=== PATIENT | female | born 1965 | race American Indian/Alaskan Native ===

== ENCOUNTER 2016-10-06 10:45 | Emergency (ER) | payer BC, OTHER ==
[2016-10-06 11:02] VITALS: BP 158/97
[2016-10-06] MEDS ORDERED: VISTARIL PO ONE (11:40)
[2016-10-06] MEDS ORDERED: PEPCID PO ONE (11:40)
--- NOTE | 2016-10-06 11:44 | Emergency Department Report ---
Chief Complaint: Allergic Reaction Stated Complaint: ALLERGIC REACTION Time Seen by Provider: 10/06/16 11:39 - HPI History of Present Illness: 51-year-old -[place] female comes to the emergency room for complaint of lip swelling since 2:30 AM this morning. Patient reports the top of her lip swelling worse she took Benadryl prior to arrival. She denies any shortness of breath no wheezes does report a time for the little thicker. She denies being on any blood pressure medicine any new foods or new perfumes or soaps. - Exam Vital Signs: Vital Signs 10/06/16 10:57 Temperature 98.2 F Pulse Rate 81 Respiratory 20 Rate Blood Pressure 158/97 O2 Sat by Pulse 100 Oximetry Physical Exam: Patient's alert and oriented 3 she does have quite a bit of swelling in her upper lip. She is moving air fine. No uvula edema. Cardiovascular S1-S2 regular rate and rhythm MSE screening note: Focused history and physical exam performed. Due to findings the following was ordered: Patient's been evaluated by this provider MSE triage. We will order Pepcid 40 mg by mouth starter Medrol 40 mg IM and Vistaril 50 mg by mouth. Patient be evaluated in fast track. ED Disposition for MSE Condition: Stable Referrals: VIVIANA SHARMA MD [Primary Care Provider] - 3-5 Days
--- NOTE | 2016-10-06 14:50 | Emergency Department Report ---
Entered by ARIANNA TALLEY, acting as scribe for BALTAZAR WANG PA. ED Allergic Reaction HPI - General Chief complaint: Allergic Reaction Stated complaint: ALLERGIC REACTION Time Seen by Provider: 10/06/16 11:39 Source: patient Mode of arrival: Ambulatory Limitations: No Limitations - History of Present Illness Initial Comments: 51 year old female presents to the ED for evaluation of upper lip swelling that began this morning at 02:30. She reports mild improvement after Benadryl at home and Benadryl, Pepcid, and Steroids after triage in the ED. She reports no known allergies but states she ate seafood yesterday. Denies difficulty swallowing, shortness of breath, chest pain, fever, chills, abdominal pain, nausea, and vomiting. MD Complaint: facial swelling (upper lip) -: This morning Time: 02:30 Exposure: unknown (reports eating seafood yesterday) Symptoms: lip swelling. denies: rash, itching, facial swelling, difficulty swallowing, difficulty breathing, nausea, vomiting, abdominal pain Treatment Prior to Arrival: benadryl Previous Allergy History: none - Related Data Previous Rx's Medication Instructions Recorded Last Taken Type Diphenhydramine HCl [Benadryl 25 mg PO Q6H #30 tablet 10/06/16 Unknown Rx Allergy TAB] EPINEPHrine (NF) [Epipen (Nf)] 0.3 mg IM ONCE PRN #1 syringekit 10/06/16 Unknown Rx predniSONE [Deltasone] 20 mg PO QDAY #6 tab 10/06/16 Unknown Rx Allergies Allergy/AdvReac Type Severity Reaction Status Date / Time No Known Allergies Allergy Unverified 11/30/14 10:45 ED Review of Systems Comment: All other systems reviewed and negative Constitutional: denies: chills ENT: other (swelling to upper lip). denies: throat pain (difficulty swallowing) Respiratory: denies: shortness of breath, wheezing Cardiovascular: denies: chest pain Gastrointestinal: denies: abdominal pain, nausea, vomiting Skin: denies: rash ED Past Medical Hx - Past Medical History Previous Medical History?: Yes Additional medical history: allergic reaction, Heart murmur - Surgical History Past Surgical History?: Yes Hx Breast Surgery: Yes (Reduction) Additional Surgical History: Gastric sleeve 5-2015, Hysterectomy - Social History Smoking Status: Never Smoker Substance Use Type: Other - Medications Home Medications: Home Medications Medication Instructions Recorded Confirmed Last Taken Type Diphenhydramine HCl [Benadryl 25 mg PO Q6H #30 tablet 10/06/16 Unknown Rx Allergy TAB] EPINEPHrine (NF) [Epipen (Nf)] 0.3 mg IM ONCE PRN #1 syringekit 10/06/16 Unknown Rx predniSONE [Deltasone] 20 mg PO QDAY #6 tab 10/06/16 Unknown Rx ED Physical Exam - General Limitations: No Limitations General appearance: alert, in no apparent distress, other (The patient is well- developed and well-nourished) - Head Head exam: Present: atraumatic, normocephalic - Eye Eye exam: Present: PERRL, EOMI - ENT ENT exam: Present: normal external ear exam (External auditory canals and tympanic membranes clear; hearing grossly intact.), other (Swelling to upper lip. No erythema, swelling or exudates to posterior phayrnx. Airway patent. Normal nasal mucosa with no nasal discharge.) - Neck Neck exam: Present: normal inspection, full ROM (supple). Absent: meningismus, lymphadenopathy, thyromegaly - Respiratory Respiratory exam: Present: normal lung sounds bilaterally. Absent: respiratory distress, wheezes, rales, rhonchi, chest wall tenderness - Cardiovascular Cardiovascular Exam: Present: regular rate, normal rhythm, normal heart sounds. Absent: rubs, gallop - GI/Abdominal GI/Abdominal exam: Present: soft. Absent: distended, tenderness, guarding, rebound - Neurological Exam Neurological exam: Present: alert, oriented X3 - Psychiatric Psychiatric exam: Present: normal affect, normal mood ED Course Vital Signs 10/06/16 10:57 Temperature 98.2 F Pulse Rate 81 Respiratory 20 Rate Blood Pressure 158/97 O2 Sat by Pulse 100 Oximetry ED Medical Decision Making - Lab Data Vital Signs 10/06/16 10:57 Temperature 98.2 F Pulse Rate 81 Respiratory 20 Rate Blood Pressure 158/97 O2 Sat by Pulse 100 Oximetry - Medical Decision Making 51-year-old female presents today with a swollen upper lip since 0230 this morning post eating seafood last night. Patient reports reduction in symptoms post Pepcid, Benadryl, steroids. Patient is in no acute distress at this time. She will be discharged home and is encouraged to follow up with a primary care provider. She will be sent home on Benadryl, prednisone and EpiPen and is encouraged to return to the emergency room for any worsening symptoms. 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 Return to the emergency department if symptoms worsen. Prescriptions: Diphenhydramine HCl [Benadryl Allergy TAB] 25 mg PO Q6H #30 tablet EPINEPHrine (NF) [Epipen (Nf)] 0.3 mg IM ONCE PRN #1 syringekit PRN Reason: Anaphylaxis predniSONE [Deltasone] 20 mg PO QDAY #6 tab Referrals: VIVIANA SHARMA MD [Primary Care Provider] - 3-5 Days Forms: Work/School Release Form(ED) Time of Disposition: 14:49 This documentation as recorded by the GERRI barone REBEKAH,accurately reflects the service I personally performed and the decisions made by ,BALTAZAR WANG PA.
== END 2016-10-06 15:00 | disposition home or self-care (01) ==
LOC: ED 10:45
DX: T78.1XXA Other adverse food reactions, not elsewhere classified, initial encounter (principal); X58.XXXA Exposure to other specified factors, initial encounter
CPT/HCPCS: 96372; 99282; J2920; Q0177

== ENCOUNTER 2020-11-03 12:21 | Emergency (ER) | payer OTHER ==
[2020-11-03 13:31] VITALS: BP 186/87
--- NOTE | 2020-11-03 14:39 | Emergency Department Report ---
ED Back Pain/Injury HPI - General Chief Complaint: Extremity Problem,Nontraumatic Stated Complaint: RT LEG PAIN Time Seen by Provider: 11/03/20 14:26 Source: patient Limitations: No Limitations - History of Present Illness Initial Comments: Patient is a 55-year-old female presents emergency room with complaints of right lower back pain that radiates down the right leg that began yesterday. She states that she could not get comfortable in the bed. She states that the pain is worse when she sits down or when she first starts to stand up. She states that she does have pain in her back upon lifting her leg. She denies any fall or injury. She denies any leg swelling, calf pain, fever, chest pain, shortness of breath, nausea, vomiting, diarrhea, complete numbness, weakness, bowel or bladder incontinence. She is ambulatory. Patient states that she had a Covid vaccine 3 weeks ago and due to reports in the news she was concerned that she may have a blood clot due to googling online but she reports that she believes she was wrong. She states that the pain is in the back and radiates down the leg. She states that the pain does not start in the leg. She states there is no leg swelling, no increased warmth, no erythema, and no calf pain. - Related Data Previous Rx's Medication Instructions Recorded Last Taken Type Diphenhydramine HCl [Benadryl 25 mg PO Q6H #30 tablet 10/06/16 Unknown Rx Allergy TAB] EPINEPHrine (NF) [Epipen (Nf)] 0.3 mg IM ONCE PRN #1 syringekit 10/06/16 Unknown Rx predniSONE [Deltasone] 20 mg PO QDAY #6 tab 10/06/16 Unknown Rx Cyclobenzaprine [Flexeril] 10 mg PO BID PRN #14 tablet 11/03/20 Unknown Rx Menthol/Camphor [Phoenix Gage 1 applic TP BID #18 oint...g. 11/03/20 Unknown Rx Ointment] Naproxen [EC-Naprosyn] 500 mg PO BID PRN #14 tablet. 11/03/20 Unknown Rx Prednisone [predniSONE 10 mg 10 mg PO .TAPER #1 tab.ds.pk 11/03/20 Unknown Rx (6-Day Pack, 21 Tabs)] Allergies Allergy/AdvReac Type Severity Reaction Status Date / Time No Known Allergies Allergy Unverified 11/30/14 10:45 ED Review of Systems ROS: Stated complaint: RT LEG PAIN Other details as noted in HPI Comment: All other systems reviewed and negative ED Past Medical Hx - Past Medical History Previous Medical History?: No Additional medical history: allergic reaction, Heart murmur - Surgical History Past Surgical History?: Yes Hx Breast Surgery: Yes (Reduction) Additional Surgical History: Gastric sleeve -2015, Hysterectomy - Social History Smoking Status: Never Smoker Substance Use Type: Other - Medications Home Medications: Home Medications Medication Instructions Recorded Confirmed Last Taken Type Diphenhydramine HCl [Benadryl 25 mg PO Q6H #30 tablet 10/06/16 Unknown Rx Allergy TAB] EPINEPHrine (NF) [Epipen (Nf)] 0.3 mg IM ONCE PRN #1 syringekit 10/06/16 Unknown Rx predniSONE [Deltasone] 20 mg PO QDAY #6 tab 10/06/16 Unknown Rx Cyclobenzaprine [Flexeril] 10 mg PO BID PRN #14 tablet 11/03/20 Unknown Rx Menthol/Camphor [Phoenix Gage 1 applic TP BID #18 oint...g. 11/03/20 Unknown Rx Ointment] Naproxen [EC-Naprosyn] 500 mg PO BID PRN #14 tablet.dr 11/03/20 Unknown Rx Prednisone [predniSONE 10 mg 10 mg PO .TAPER #1 tab.ds.pk 11/03/20 Unknown Rx (6-Day Pack, 21 Tabs)] ED Physical Exam - General Limitations: No Limitations General appearance: alert, in no apparent distress - Head Head exam: Present: atraumatic, normocephalic - Eye Eye exam: Present: normal appearance - ENT ENT exam: Present: mucous membranes moist - Neck Neck exam: Present: normal inspection, full ROM. Absent: tenderness - Respiratory Respiratory exam: Present: normal lung sounds bilaterally. Absent: respiratory distress, wheezes, rales, rhonchi, stridor, chest wall tenderness, accessory muscle use, decreased breath sounds, prolonged expiratory - Cardiovascular Cardiovascular Exam: Present: regular rate, normal rhythm, normal heart sounds. Absent: systolic murmur, diastolic murmur, rubs, gallop - Extremities Exam Extremities exam: Present: normal inspection, full ROM, normal capillary refill, other (negative homans sign, no calf ttp, no edema of the BLE, no erythema, no increased warmth, neurovascularly intact). Absent: tenderness, pedal edema, joint swelling, calf tenderness - Back Exam Back exam: Present: normal inspection, full ROM, paraspinal tenderness (right lumbar paraspinal muscular ttp, no midline C-spine, T-spine or L-spine ttp, no step offs, no deformities, pain with SLR of the right leg). Absent: vertebral tenderness - Neurological Exam Neurological exam: Present: alert, oriented X3, CN II-XII intact, normal gait. Absent: motor sensory deficit - Psychiatric Psychiatric exam: Present: normal affect, normal mood - Skin Skin exam: Present: warm, dry, intact ED Course Vital Signs 11/03/20 13:30 Temperature 98.2 F Pulse Rate 65 Respiratory 22 Rate Blood Pressure 186/87 O2 Sat by Pulse 100 Oximetry ED Medical Decision Making - Medical Decision Making Patient is a 55-year-old female presents emergency room with complaints of right lower back pain that radiates down the right leg that began yesterday. She states that she could not get comfortable in the bed. She states that the pain is worse when she sits down or when she first starts to stand up. She states that she does have pain in her back upon lifting her leg. She denies any fall or injury. She denies any leg swelling, calf pain, fever, chest pain, shortness of breath, nausea, vomiting, diarrhea, complete numbness, weakness, bowel or bladder incontinence. She is ambulatory. Patient states that she had a Covid vaccine 3 weeks ago and due to reports in the news she was concerned that she may have a blood clot due to googling online but she reports that she believes she was wrong. She states that the pain is in the back and radiates down the leg. She states that the pain does not start in the leg. She states there is no leg swelling, no increased warmth, no erythema, and no calf pain. Vitals with mildly elevated blood pressure, otherwise stable, patient states that she believes it is elevated secondary to her being nervous and having discomfort, advised patient to please keep a blood pressure log, follow-up with your primary care doctor eat a low-sodium diet. On exam:negative homans sign, no calf ttp, no edema of the BLE, no erythema, no increased warmth, neurovascularly intact, right lumbar paraspinal muscular ttp, no midline C-spine, T-spine or L-spine ttp, no step offs, no deformities, pain with SLR of the right leg, she has no clinical signs of DVT. Symptoms appear most consistent with sciatica versus lumbar radiculopathy. Patient has no red flag warning signs of back pain, no trauma, no unexplained weight loss, no neuro deficits, no fever, no IV drug use, no steroid use, no history of cancer. Patient given prescriptions. Advised patient Please take medication as prescribed. Do not drive or operate machinery when taking muscle relaxer Flexeril. May use ice pack, heating pad, rest, and epsom salt bath. Please do the stretches for sciatica. Follow-up with your primary care doctor for reexamination. Return to emergency room immediately for any new or worsening symptoms including but not limited to leg swelling, calf pain, difficulty breathing, chest pain, complete numbness, weakness, unable to control bowel or bladder function. Critical care attestation.: If time is entered above; I have spent that time in minutes in the direct care of this critically ill patient, excluding procedure time. ED Disposition Clinical Impression: Low back pain Qualifiers: Chronicity: acute Back pain laterality: right Sciatica presence: with sciatica Sciatica laterality: sciatica of right side Qualified Code(s): M54.41 - Lumbago with sciatica, right side Disposition: DC-01 TO HOME OR SELFCARE Is pt being admited?: No Does the pt Need Aspirin: No Condition: Stable Instructions: Sciatica Additional Instructions: Please take medication as prescribed. Do not drive or operate machinery when taking muscle relaxer Flexeril. May use ice pack, heating pad, rest, and epsom salt bath. Please do the stretches for sciatica. Follow-up with your primary care doctor for reexamination. Return to emergency room immediately for any new or worsening symptoms including but not limited to leg swelling, calf pain, difficulty breathing, chest pain, complete numbness, weakness, unable to control bowel or bladder function. Prescriptions: Naproxen [EC-Naprosyn] 500 mg PO BID PRN #14 tablet.dr [place] Reason: pain Cyclobenzaprine [Flexeril] 10 mg PO BID PRN #14 tablet PRN Reason: pain Prednisone [predniSONE 10 mg (6-Day Pack, 21 Tabs)] 10 mg PO .TAPER #1 tab.ds.pk Menthol/Camphor [Phoenix Gage Ointment] 1 applic TP BID #18 oint...g. Referrals: your, primary care doctor [Other] - 2-3 Days Forms: Work/School Release Form(ED) Time of Disposition: 14:38 Print Language: [place]
== END 2020-11-03 15:07 | disposition home or self-care (01) ==
LOC: ED 12:21
DX: M54.5 Low back pain (principal); M79.604 Pain in right leg; Z98.890 Other specified postprocedural states; Z90.710 Acquired absence of both cervix and uterus; Z79.899 Other long term (current) drug therapy
CPT/HCPCS: 99281